=== PATIENT | female | born 1995 | race African-American/Black ===

== ENCOUNTER → 2018-04-26 11:57 | Outpatient (CLI) | payer BC ==
[~2018-04-26 11:57] MED LIST: AMBIEN5 MG; KLONOPIN0.5 MG; LEXAPRO5 MG
== END | disposition home or self-care (01) ==
LOC: D.CT 11:57
DX: R51 Headache (principal)

== ENCOUNTER 2018-04-30 21:06 | Emergency (ER) | payer BC ==
[~2018-04-30] VITALS: Ht 167.6 cm; Wt 60.9 kg
[2018-04-30 21:12] VITALS: Ht 167.6 cm; Wt 60.9 kg
[2018-04-30] MEDS ORDERED: KLONOPIN0.5 MG (21:13)
[2018-04-30] MEDS ORDERED: AMBIEN5 MG (21:14)
[2018-04-30] MEDS ORDERED: LEXAPRO5 MG (21:14)
[2018-04-30 21:37] LABS: BASOPHILS 0.2 % (0-2); EOSINOPHILS 1.1 % (0-7); HEMATOCRIT 37.8 % (36.0-48.0); HEMOGLOBIN 12.6 g/dL (12-16); IMMATURE GRANULOCYTES 0.3 % (0-5); LYMPHOCYTES 21.8 % (15-50); MCH 29.9 pg (26.0-34.0); MCHC 33.3 g/dL (31.0-37.0); MCV 89.6 fL (80.0-100.0); MEAN PLATELET VOLUME 10.1 fL (7.4-10.4); MONOCYTES 11.1 % (2-11); NEUTROPHILS 65.5 % (40-80); PLATELET COUNT 292 10x3/uL (130-400); RBC 4.22 10x6/uL (4.00-5.40); RDW 13.6 % (11.5-14.5); WBC 9.3 10x3/uL (4.8-10.8)
[2018-04-30 21:59] LABS: ALBUMIN 4.3 g/dL (3.4-5.0); ALKALINE PHOSPHATASE 58 U/L (46-116); ALT (SGPT) 15 U/L (10-68); BILIRUBIN - TOTAL 0.26 mg/dL (0.2-1.3); CALC OSMOLALITY 281 mosm/kg (275-300); CALCIUM 9.9 mg/dL (8.5-10.1); CARBON DIOXIDE 26.1 mmol/L (21.0-32.0); CHLORIDE - SERUM 106 mmol/L (98-107); CREATININE - SERUM 0.9 mg/dL (0.6-1.3); GLUCOSE 99 mg/dL (74-106); POTASSIUM - SERUM 3.6 mmol/L (3.5-5.1); PROTEIN - SERUM 8.1 g/dL (6.4-8.2); SODIUM 142 mmol/L (136-145); UREA NITROGEN 11 mg/dL (7-18); eGFR NON AFRICAN AMERICAN 83 mL/min (90-120)
[2018-04-30 22:11] LABS: HCG URINE NEGATIVE (NEGATIVE)
[2018-04-30 22:12] LABS: TROPONIN-I < 0.017 ng/mL (0.000-0.060)
[2018-04-30 22:21] LABS: COLOR YELLOW (YELLOW)
[2018-04-30 22:22] LABS: APPEARANCE CLEAR (CLEAR); BILIRUBIN NEGATIVE (NEGATIVE); EPITHELIAL CELLS 0-5 /hpf (0-5); GLUCOSE NEGATIVE (NEGATIVE); KETONE NEGATIVE (NEGATIVE); NITRITE NEGATIVE (NEGATIVE); PROTEIN NEGATIVE (NEGATIVE); RED CELLS - URINE RARE /hpf (0-5); UROBILINOGEN NORMAL (NORMAL); WHITE CELLS - URINE 0-5 /hpf (0-5)
[2018-04-30 22:23] LABS: UDS - AMPHET NEGATIVE QUAL (NEGATIVE); UDS - BARB NEGATIVE QUAL (NEGATIVE); UDS - BENZO NEGATIVE QUAL (NEGATIVE); UDS - COCAINE NEGATIVE QUAL (NEGATIVE); UDS - OPIATE NEGATIVE QUAL (NEGATIVE); UDS - PCP NEGATIVE QUAL (NEGATIVE); UDS - THC POSITIVE QUAL (NEGATIVE)
[2018-04-30 23:03] VITALS: BP 140/84
== END 2018-04-30 23:04 | disposition home or self-care (01) ==
LOC: D.ER 21:06
PROVIDERS: Family Medicine
DX: F41.9 Anxiety disorder, unspecified (principal); F12.10 Cannabis abuse, uncomplicated